=== PATIENT | female | born 1990 | race Caucasian/White ===

== ENCOUNTER 2016-07-04 20:02 | Emergency (ER) | payer OTHER ==
[~2016-07-04] VITALS: Ht 177.8 cm; Wt 63.6 kg
[~2016-07-04 20:02] MED LIST: DOCU-41 PO; IBUP800T28 PO; OXYC1TAB24 PO
[2016-07-04 20:04] VITALS: BP 140/86; PULSE 96; RESP 22; O2SAT 100
--- NOTE | 2016-07-04 20:42 | ED.REPORT ---
HPI-Trauma Minor / Fall Date of Service Jul 04, 2016 ED Provider: Manas Maya PA-C Sukh is a 19 weeks 25-year-old female who presents with chief complaint of lower back pain. She states that she stood up yesterday while picking up her older child and struck her back against china cabinet. She reports pain in her lower back. She denies bowel/bladder dysfunction, saddle anesthesia, numbness, weakness, shooting pains in her legs. Denies abdominal pain, cramping, vaginal bleeding or discharge. Admits smoking one half pack per day. Nursing Notes Stated Complaint: BACK INJURY Chief Complaint: Back Pain or Injury Nursing Notes Reviewed: Yes Allergies: Coded Allergies: Penicillins (Verified Allergy, Unknown, 07/04/16) Sulfa (Sulfonamide Antibiotics) (Verified Allergy, Unknown, 07/04/16) iodine (Verified Allergy, Unknown, 07/04/16) Scheduled Docusate Sodium (Colace) 100 Mg Capsule 100 MG PO BID Scheduled PRN Ibuprofen (Ibuprofen) 800 Mg Tablet 800 MG PO Q6H PRN PRN For Pain oxyCODONE-Acetaminophen 5-325 mg (oxyCODONE-Acetaminophen 5-325 mg) 1 Each Tablet 1-2 TAB PO Q4H PRN PRN For Pain General Time Seen by MD: 20:23 Chief Complaint Other (struck back against a cabinet.) Past Medical History Past Medical History Denies Smoking History Current Every Day Smoker Review of Systems Negative unless stated otherwise in history of present illness Physical Exam General: Well appearing, well developed, thin, no acute distress. Head: Atraumatic, normocephalic. Eyes: No scleral icterus or injection. No discharge. Vision grossly intact. ENT: Voice clear, hearing grossly intact. Respiratory: Regular rate and rhythm. Breath sounds present, clear to auscultation and equal bilaterally. No respiratory distress. No increased work of breathing, speaks in complete sentences. Cardiovascular: Regular rate and rhythm, without murmur, gallop or rub. No pedal edema. Gastrointestinal: Abdomen flat and non-tender without guarding or rebound. Bowel sounds normoactive. Skin: Warm and dry. Back: Small abrasion over roughly L5 with associated tenderness. Mild tenderness over SI joints bilaterally. Excellent range of motion. Neurological: Antalgic gait. Psychological: Alert and oriented. Speech appropriate, linear and logical. Behavior appropriate. Initial Vital Signs Vital Signs (First) Date Time Temp Pulse Resp B/P Pulse Ox O2 Delivery O2 Flow Rate FiO2 07/04/16 20:04 36.1 96 22 140/86 100 Initial VS: Reviewed, Vital signs normal Re-Eval/Medical Decision Med Decision/Clinical Course Otherwise healthy 25-year-old female presents with lower back pain that began when she struck her back against a piece of furniture while picking up her child. Patient reports being 19 weeks . Denies bowel/bladder dysfunction, saddle anesthesia, numbness, weakness, shooting pains in her legs. Physical examination reveals a small abrasion over approximately L5 with associated tenderness and bilateral mild SI joint tenderness. She has an antalgic gait. I do not believe this mechanism injury justifies imaging at this time. There is no indication of neurological damage. No indication of threatened . I believe this is a contusion. Advised acetaminophen for pain, advised against ibuprofen for pain. Provided instructions for primary care follow-up as well as emergency return precautions. The patient understands and agrees with plan. Patient admits to smoking one half pack per day cigarettes despite being . Was made clear that this harms her fetus. Discharge & Departure Impression: Primary Impression: Contusion of lower back Encounter type: initial encounter Qualified Code: S30.0XXA - Contusion of lower back and pelvis, initial encounter Disposition: Home Discharge Condition All VS Reviewed: Yes Condition: Stable Patient Instructions: Contusions in Adults (ED) Additional Instructions: Evaluation for a lower back injury in the emergency department. History and physical are reassuring that there is unlikely to be a fracture or neurological damage from this injury. I believe this is a contusion, which should improve on its own without treatment. I suggest resting as much as possible and icing the affected area for 10 minutes 3 times a day. Pain is best managed with 1000 mg of acetaminophen (Tylenol) every 6 hours. Do not use ibuprofen (Motrin) as it is not improved for early . It is extremely important that you stop smoking while you are . Smoking is proven to harm your fetus. Follow-up with Dr. Bateman in a few days if you have any further concerns. Return to emergency department for new or worsening symptoms including numbness in your legs or loss of bowel/bladder control. Referrals: Tomer Bateman DO (PCP) EDSupervising Provider for APC: George William MD copies to: Tomer Bateman Seth PA-C Jul 04, 2016 20:42
== END 2016-07-04 21:00 | disposition home or self-care (01) ==
LOC: SED 20:02
DX: O9A.212 Injury, poisoning and certain other consequences of external causes complicating pregnancy, second trimester (principal); S30.0XXA Contusion of lower back and pelvis, initial encounter; W22.8XXA Striking against or struck by other objects, initial encounter; Y92.9 Unspecified place or not applicable; Y93.89 Activity, other specified; Y99.8 Other external cause status; F17.200 Nicotine dependence, unspecified, uncomplicated; Z3A.19 19 weeks gestation of pregnancy; Z88.0 Allergy status to penicillin; Z88.2 Allergy status to sulfonamides; Z91.041 Radiographic dye allergy status